=== PATIENT | male | born 1955 | race Two or more races ===

== ENCOUNTER 2017-11-02 08:40 | Day surgery (SDC) | payer MEDICARE, MEDICAID ==
[2017-11-02] MEDS ORDERED: BUPIVACAINE 0.25% 75 MG/30 ML VIAL ONE (10:50)
[2017-11-02] MEDS ORDERED: GABAPENTIN 300 MG CAPSULE PO ONE (12:00)
[2017-11-02] MEDS ORDERED: IBUPROFEN 400 MG TABLET PO ONE (12:00)
[2017-11-02] MEDS ORDERED: IBUPROFEN 800 MG TABLET PO ONE (12:00)
[2017-11-02] MEDS ORDERED: ACETAMINOPHEN 325 MG TABLET PO ONE (12:00)
[2017-11-02] MEDS ORDERED: ACETAMINOPHEN 325 MG TABLET ONE (12:21)
== END 2017-11-02 13:30 | disposition home or self-care (01) ==
LOC: DS 08:40
PROVIDERS: ATTEND Surgery
DX: K62.89 Other specified diseases of anus and rectum (principal); K62.4 Stenosis of anus and rectum; K57.30 Diverticulosis of large intestine without perforation or abscess without bleeding; I10 Essential (primary) hypertension; E11.9 Type 2 diabetes mellitus without complications; N40.0 Benign prostatic hyperplasia without lower urinary tract symptoms; F17.210 Nicotine dependence, cigarettes, uncomplicated; Z79.82 Long term (current) use of aspirin; Z79.899 Other long term (current) drug therapy; Z86.010 Personal history of colon polyps; Z98.890 Other specified postprocedural states; Z80.0 Family history of malignant neoplasm of digestive organs; Z83.3 Family history of diabetes mellitus
CPT/HCPCS: 82962-TC; 88305-TC; A6402; A6403; J2704; J3490; Z7610